=== PATIENT | female | born 1975 | race Caucasian/White ===

== ENCOUNTER → 2016-05-29 | Outpatient (CLI) | payer MEDICARE, OTHER ==
[2016-05-29 15:45] VITALS: BP 102/62; PULSE 92; TEMP 98.2; BMI 22.5
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
== END | disposition home or self-care (01) ==
LOC: BARWHC3 15:14
PROVIDERS: ATTEND Surgery
DX: Z48.815 Encounter for surgical aftercare following surgery on the digestive system (principal); Z68.22 Body mass index [BMI] 22.0-22.9, adult; G89.4 Chronic pain syndrome; Z79.899 Other long term (current) drug therapy; Z98.84 Bariatric surgery status; F17.200 Nicotine dependence, unspecified, uncomplicated
CPT/HCPCS: 99211

== ENCOUNTER → 2017-05-21 | Outpatient (CLI) | payer MEDICARE, OTHER ==
[2017-05-22 01:33] LABS: HIV AB P24 Non-Reactive (Non-Reactive); HIV P24 AG Non-Reactive (Non-Reactive)
== END | disposition home or self-care (01) ==
LOC: LABWHC1 16:16
PROVIDERS: ATTEND Obstetrics & Gynecology
DX: Z20.2 Contact with and (suspected) exposure to infections with a predominantly sexual mode of transmission (principal)
CPT/HCPCS: 36415; 86780; 87390

== ENCOUNTER → 2017-07-14 | Outpatient (CLI) | payer MEDICARE, OTHER ==
--- NOTE | 2017-07-14 09:05 | MR ---
MR lumbar spine wo con Low back pain, prior surgery Multiplanar, multiecho imaging of the lumbar spine was obtained without contrast on a 3 Kimberly magnet. REFERENCE: Previous study dated 06/21/2013. FINDINGS: Paraspinal soft tissues are normal. The similar previous interpedicular fusion at L4-5. Alignment remains normal. Cord signal is normal. The conus ends normally at the level of the mid body of L1. At T12-L1, no definite abnormality is seen. At L1-2, there is minimal capsulitis within the facets. At L2-3, the intervertebral foramina are widely maintained. There is no significant compressive disco georgi. There is mild hypertrophic change in the facets. At L3-4, the intervertebral foramina are well maintained. There is no significant compressive discopa thy. The facets are obscure by metal hardware. At L4-5, this level is fused. There is mild disc space loss and disc desiccation. Intervertebral fora juan carlos appear reasonably well-maintained. There is no significant compressive discopathy. The facets ar e obscured. At L5-S1, there is mild degenerative change in the facets. IMPRESSION: 1. POSTOPERATIVE CHANGE. 2. MILD, DIFFUSE FACET ARTHROPATHY. 3. POSTSURGICAL CHANGE.
== END | disposition home or self-care (01) ==
LOC: RADMRIMAIN 08:05
PROVIDERS: ATTEND Family Medicine
DX: M46.96 Unspecified inflammatory spondylopathy, lumbar region (principal); Z98.1 Arthrodesis status
CPT/HCPCS: 72148; A9581

== ENCOUNTER → 2017-10-29 | Outpatient (CLI) | payer MEDICARE, OTHER ==
[2017-10-29 16:24] VITALS: BP 115/75; PULSE 84; TEMP 98.4; BMI 20.8
[2017-10-29 16:52] LABS: HCT 41.2 % (34.0-46.0); HGB 13.3 gm/dL (11.4-16.0); MCHC 32.3 g/dL (31.0-37.0); MCV 89.7 fL (80.0-100.0); Mean Platelet Volume 7.5; Platelet Count 234 k/uL (150-450); RBC 4.59 m/uL (3.80-5.40); RDW 12.6 % (11.5-15.5)
[2017-10-29 17:06] LABS: INR 0.9 (<1.2); Prothrombin Time 9.4 sec (9.0-12.0)
[2017-10-29 17:09] LABS: ALT 52 U/L (9-52); AST 33 U/L (14-36); Albumin 4.2 g/dL (3.5-5.0); Alkaline Phosphatase 126 U/L (38-126); Anion Gap 6 mmol/L; Blood Urea Nitrogen 14 mg/dL (7-17); Calcium 9.2 mg/dL (8.4-10.2); Carbon Dioxide 25 mmol/L (22-30); Chloride 109 mmol/L (98-107); Glucose 78 mg/dL (74-99); Potassium 4.5 mmol/L (3.5-5.1); Sodium 140 mmol/L (137-145); Total Bilirubin 0.4 mg/dL (0.2-1.3); Total Protein 6.6 g/dL (6.3-8.2)
[2017-10-30 02:20] LABS: Parathyroid Hormone Intact 32.2 pg/mL (14.0-72.0)
[2017-10-30 02:47] LABS: Iron Saturation 16.24 (12.00-45.00)
[2017-10-30 02:59] LABS: Vitamin D 25 Hydroxy 47.5 ng/mL (30.0-100.0)
--- NOTE | 2017-10-30 15:42 | P.HPBAR ---
Bariatric H&P - History & Physicial H&P Date: 10/29/17 History & Physicial: Visit/CC: follow up Patient initial contact: Initial weight: Initial weight in pounds: Height: 5 ft 4 in Initial BMI: Last weight: Current weight: 55.066 kg Current weight in pounds: 121.40 Current BMI: 20.8 [place] body weight (based on NIH guidelines): 54.431 kg Excess body weight loss: The patient is a 42 year-old F who presents for Bariatric Assessment.the patient presents today for sleeve gastrectomy follow-up. She has had some mild GERD. She is also gained about 10 pounds.she has some complaints of constipation. Past Medical History Past Medical History: Hearing Disorder / Deafness, Hyperlipidemia, Seizure Disorder Additional Past Medical History / Comment(s): glasses, caps TMJ EARS PIERCED TATTOES GENITAL HERPES IRRITABLE BOWEL DISEASE History of Any Multi-Drug Resistant Organisms: None Reported Past Surgical History: Back Surgery, Bariatric Surgery, Cholecystectomy, Tubal Ligation Past Anesthesia/Blood Transfusion Reactions: No Reported Reaction Past Psychological History: Anxiety, Depression, Panic Disorder Smoking Status: Current every day smoker Past Alcohol Use History: None Reported Past Drug Use History: None Reported Surgical - Exam Vital Signs Temp Pulse BP 98.4 F 84 115/75 10/29/17 16:21 10/29/17 16:21 10/29/17 16:21 - General well developed, no distress - Eyes PERRL - ENT normal pinna - Neck no masses - Respiratory normal expansion - Cardiovascular Rhythm: regular - Abdomen Abdomen: soft, non tender Results - Labs 10/29/17 16:30 10/29/17 16:30 Abnormal Lab Results - Last 24 Hours (Table) 10/29/17 Range/Units 16:30 Chloride 109 H (98-107) mmol/L Diabetes panel 10/29/17 Range/Units 16:30 Sodium 140 (137-145) mmol/L Potassium 4.5 (3.5-5.1) mmol/L Chloride 109 H (98-107) mmol/L Carbon Dioxide 25 (22-30) mmol/L BUN 14 (7-17) mg/dL Creatinine 0.74 (0.52-1.04) mg/dL Glucose 78 (74-99) mg/dL Calcium 9.2 (8.4-10.2) mg/dL AST 33 (14-36) U/L ALT 52 (9-52) U/L Alkaline Phosphatase 126 (38-126) U/L Total Protein 6.6 (6.3-8.2) g/dL Albumin 4.2 (3.5-5.0) g/dL Thyroid panel 10/29/17 Range/Units 16:30 TSH 1.940 (0.465-4.680) mIU/L Calcium panel 10/29/17 Range/Units 16:30 Calcium 9.2 (8.4-10.2) mg/dL Albumin 4.2 (3.5-5.0) g/dL Pituitary panel 10/29/17 Range/Units 16:30 Sodium 140 (137-145) mmol/L Potassium 4.5 (3.5-5.1) mmol/L Chloride 109 H (98-107) mmol/L Carbon Dioxide 25 (22-30) mmol/L BUN 14 (7-17) mg/dL Creatinine 0.74 (0.52-1.04) mg/dL Glucose 78 (74-99) mg/dL Calcium 9.2 (8.4-10.2) mg/dL TSH 1.940 (0.465-4.680) mIU/L Adrenal panel 10/29/17 Range/Units 16:30 Sodium 140 (137-145) mmol/L Potassium 4.5 (3.5-5.1) mmol/L Chloride 109 H (98-107) mmol/L Carbon Dioxide 25 (22-30) mmol/L BUN 14 (7-17) mg/dL Creatinine 0.74 (0.52-1.04) mg/dL Glucose 78 (74-99) mg/dL Calcium 9.2 (8.4-10.2) mg/dL Total Bilirubin 0.4 (0.2-1.3) mg/dL AST 33 (14-36) U/L ALT 52 (9-52) U/L Alkaline Phosphatase 126 (38-126) U/L Total Protein 6.6 (6.3-8.2) g/dL Albumin 4.2 (3.5-5.0) g/dL Bariatric Assessment & Plan Plan: status post sleeve gastric. Patient is doing quite well. Her GERD is minimal and will be observed. She'll follow-up in one month. She was given information on panniculectomy. Bariatric Checklist Checklist: Plan: Checklist: EGD: 1. Hiatal hernia: 2. H. Pylori: HgbA1c: Vitamin D: Smoking: Current every day smoker Primary care physician referral: Psychiatry clearance: Cardiology clearance: Sleep study: Diet journal: VTE risk score: VTE risk level: Rehab needs at discharge:
== END | disposition home or self-care (01) ==
LOC: BARWHC3 15:37
PROVIDERS: ATTEND Surgery
DX: Z48.815 Encounter for surgical aftercare following surgery on the digestive system (principal); K21.9 Gastro-esophageal reflux disease without esophagitis; F17.200 Nicotine dependence, unspecified, uncomplicated; E66.01 Morbid (severe) obesity due to excess calories; D50.8 Other iron deficiency anemias; K90.89 Other intestinal malabsorption; E55.9 Vitamin D deficiency, unspecified; Z98.84 Bariatric surgery status; Z68.20 Body mass index [BMI] 20.0-20.9, adult
CPT/HCPCS: 84134; 84425; 80053; 82607; 82746; 83540; 83550; 84443; 85027; 85610; 82306; 83970; 36415; G0463; 99211

== ENCOUNTER 2017-11-16 07:01 | Day surgery (SDC) | payer MEDICARE, OTHER ==
[2017-11-13 15:22] VITALS: BMI 21.6
[~2017-11-16 07:01] MED LIST: LACTATED RINGERS 1,000 ML IV SCH; LIDOCAINE 1% 20 ML VIAL (10MG/ML) FOR IV START INTRADERMA PRN; MIDAZOLAM 2 MG/2 ML VIAL IV PRN
[2017-11-16 07:26] VITALS: TEMP 98.6
[2017-11-16] MEDS ORDERED: LACTATED RINGERS 1,000 ML IV ONE ×2 (07:32)
[2017-11-16] MEDS ORDERED: LIDOCAINE 1% INJ 10MG/ML (20 ML MDV) ONE (07:44)
[2017-11-16] MEDS ORDERED: PROPOFOL 10 MG/ML 20 ML VIAL IV ONE (07:44)
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
--- NOTE | 2017-11-16 08:15 | P.OP ---
Date of Procedure: 11/16/17 Preoperative Diagnosis: Dysphagia, Screening colonoscopy Postoperative Diagnosis: Antral gastritis Normal colon Procedure(s) Performed: EGD Colonoscopy Anesthesia: MAC Surgeon: Eleazar Lugo Pathology: other (Antrum) Condition: stable Disposition: PACU Description of Procedure: PROCEDURE: The patient was placed on the endoscopy table in the lateral position. Digital rectal examination was performed which revealed no abnormalities. The prostate was symmetrical without nodules. Flexible colonoscope was then placed in the patient's anus and passed throughout the entire colon. The ileocecal valve was visualized. The cecum, ascending, transverse, descending and sigmoid colon were normal. The rectum was normal as well. There were no masses, polyps or diverticula noted in the entire colon. Next, the gastroscope was placed oropharynx and passed in the esophagus and stomach. Scope was then placed through the pylorus. The first and second portion of the duodenum appeared normal. Scope was then brought back the antrum this appeared inflamed. A biopsies performed. Scope was then brought back to the stomach. The gastric sleeve without evidence of obstruction. The GE junction was at 38 cm. The distal esophagus and proximal esophagus appeared normal. Scope was withdrawn for patient.
[2017-11-16 08:45] VITALS: BP 99/69; PULSE 92; RESP 16
== END 2017-11-16 09:11 | disposition home or self-care (01) ==
LOC: ORWHC2ENDO 07:01
PROVIDERS: ATTEND Surgery
DX: Z12.11 Encounter for screening for malignant neoplasm of colon (principal); K29.50 Unspecified chronic gastritis without bleeding; K21.9 Gastro-esophageal reflux disease without esophagitis; R13.10 Dysphagia, unspecified; E78.5 Hyperlipidemia, unspecified; M19.90 Unspecified osteoarthritis, unspecified site; G40.909 Epilepsy, unspecified, not intractable, without status epilepticus; E07.9 Disorder of thyroid, unspecified; Z87.891 Personal history of nicotine dependence; Z79.890 Hormone replacement therapy; Z79.899 Other long term (current) drug therapy; Z88.5 Allergy status to narcotic agent; K58.9 Irritable bowel syndrome, unspecified; K25.9 Gastric ulcer, unspecified as acute or chronic, without hemorrhage or perforation; G89.29 Other chronic pain; M54.9 Dorsalgia, unspecified; J45.909 Unspecified asthma, uncomplicated
CPT/HCPCS: 81025; 88305; 43239; J2001; J2704; G0121; 45378

== ENCOUNTER → 2018-12-30 | Outpatient (CLI) | payer MEDICARE, OTHER ==
[2018-12-30 15:04] VITALS: BP 117/77; PULSE 83; TEMP 98.3; BMI 18.1
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
== END ==
LOC: BARWHC3 14:07
PROVIDERS: ATTEND Surgery
DX: Z48.815 Encounter for surgical aftercare following surgery on the digestive system (principal); Z98.84 Bariatric surgery status; Z87.891 Personal history of nicotine dependence; Z90.49 Acquired absence of other specified parts of digestive tract
CPT/HCPCS: 99211

== ENCOUNTER → 2019-01-02 | Outpatient (CLI) | payer MEDICARE, OTHER ==
[2019-01-02 16:50] LABS: HCT 41.1 % (34.0-46.0); HGB 14.4 gm/dL (11.4-16.0); MCH 31.5 pg (25.0-35.0); MCHC 34.9 g/dL (31.0-37.0); MCV 90.3 fL (80.0-100.0); Mean Platelet Volume 7.2; Platelet Count 275 k/uL (150-450); RBC 4.55 m/uL (3.80-5.40); RDW 12.2 % (11.5-15.5); WBC 6.7 k/uL (3.8-10.6)
[2019-01-02 23:21] LABS: African American GFR (CKD) 103.9 (60.0-200.0); Albumin 4.4 g/dL (3.80-4.90); Albumin/Globulin Ratio 2.59 (1.60-3.17); Anion Gap 6.5 mmol/L (4.00-12.00); BUN/Creat Ratio 17.5 Ratio (12.00-20.00); Calcium 9.2 mg/dL (8.7-10.3); Carbon Dioxide 23.5 mmol/L (21.6-31.8); Globulin 1.7 g/dL (1.6-3.3); Potassium 3.9 mmol/L (3.5-5.5); Total Bilirubin 0.3 mg/dL (0.3-1.2); Total Protein 6.1 g/dL (6.2-8.2)
[2019-01-02 23:32] LABS: Iron Saturation 21.79 (12.00-45.00)
[2019-01-02 23:40] LABS: Vitamin D 25 Hydroxy 23.3 ng/mL (30.0-100.0)
== END | disposition home or self-care (01) ==
LOC: LABWHC1 15:48
PROVIDERS: ATTEND Surgery
DX: E66.01 Morbid (severe) obesity due to excess calories (principal); D50.8 Other iron deficiency anemias; E44.0 Moderate protein-calorie malnutrition; E55.9 Vitamin D deficiency, unspecified
CPT/HCPCS: 36415; 80053; 82306; 82607; 83540; 83550; 84425; 84443; 85027